=== PATIENT | female | born 1975 | race Caucasian/White ===

== ENCOUNTER 2016-10-01 07:42 | Day surgery (SDC) | payer OTHER ==
--- NOTE | 2016-09-29 14:00 | HISTORY AND PHYSICAL E ---
History and Physical NAME: ZENY LOTT : 1975 AGE: 41Y ADMITTED: 10/01/2016 ROOM: REFERRING: [facility] [place]. HISTORY OF PRESENT ILLNESS: A 41-year-old female with IBS, diarrhea, abdominal pain. PAST SURGICAL HISTORY: 1. She had bilateral breast augmentation 2004. 2. Bilateral eye surgery, LASIK. 3. x3. 4. Umbilical hernia surgery. SOCIAL HISTORY: . Does not smoke. Drinks rarely. FAMILY HISTORY: Father had colon cancer. Mom is alive; she has a breast lesion. REVIEWING OF SYSTEMS: HEAD, EYES, EARS, NOSE, THROAT: Eye surgery. RESPIRATORY: Negative. ENDOCRINE: Negative. GASTROINTESTINAL: Abdominal pain, diarrhea. ONCOLOGY/HEMATOLOGY: Negative. NEUROPSYCHIATRIC: Anxiety. PHYSICAL EXAMINATION: GENERAL: Pleasant, alert, oriented. VITAL SIGNS: Blood pressure is 120/80, pulse 80, respiration is 16, temperature is 98. HEAD, EYES, EARS, NOSE, THROAT: Normal. NECK: Supple. LUNGS: Clear. ABDOMEN: Soft. NEUROLOGIC: Negative. CONCLUSIONS: 1. Diarrhea. 2. Abdominal pain. 3. Family history of colon cancer. PLAN: Colonoscopy, gallbladder ultrasound. Admit 10/01/2016. DICTATING PHYSICIAN: EVELYN MCCORD M.D. [id number] [id number] Y#: [id number] ID: [id number] JOB#: [id number] ACCT: [id number] cc:[facility] EVELYN MCCORD M.D. >
[~2016-10-01 07:42] MED LIST: EPINEPHRINE INJ 1 MG/10 ML DISP.SYRIN ONE; FLUMAZENIL INJ 0.5 MG/5 ML VIAL IV ONE; GLUCAGON,HUMAN RECOMB 1 MG INJ ONE; GLYCOPYRROLATE INJ 0.4 MG/2 ML VIAL ONE; LIDOCAINE 2% JELLY 30 ML TUBE ONE; NALOXONE HCL INJ/PF 0.4 MG/1 ML SDV ONE; ONDANSETRON HCL INJ/PF 4 MG/2 ML SDV ONE
[2016-10-01] MEDS: MIDAZOLAM 2 MG/2 ML INJ ONE ×3 (08:21→08:28)
[2016-10-01] MEDS: FENTANYL CITRATE INJ/PF 100 MCG/2 ML AMPUL ONE ×2 (08:23→08:43)
--- NOTE | 2016-10-01 09:46 | DISCHARGE SUMMARY E ---
Discharge Summary NAME: ZENY LOTT : 1975 AGE: 41Y ADMITTED: 10/01/2016 DISCHARGED: 10/01/2016 PROCEDURE: Colonoscopy, biopsy. HISTORY: A 41-year-old female presented with *------*, had diarrhea, constipation, family history of colorectal polyps. She did have 2 C-sections, umbilical hernia repair. Today's colonoscopy shows no malignancy. Diminutive tiny polyps in the rectosigmoid and mild external hemorrhoids. DISCHARGE PLAN: Soft, low-residue diet. Baseline CBC. Consider followup colonoscopy 3-5 years *------* with propofol. FINAL DIAGNOSES: 1. External hemorrhoids, mild, diminutive. 2. Rectal polyps, mild, benign. 3. Redundant colon. 4. Adhesions. 5. Irritable bowel syndrome. Followup office visit in the next few days. DICTATING PHYSICIAN: EVELYN MCCORD M.D. [id number] [id number] PHY#: [id number] ID: [id number] JOB#: [id number] ACCT: [id number] cc:[facility], EVELYN MCCORD M.D. >
[2016-10-01 09:49] LABS: ABSOLUTE MONOCYTES (AUTO) 0.5 10^3/uL (0.1-1.4); ABSOLUTE NEUT (AUTO) 4.8 10^3/uL (1.7-8.2); BASOPHILS % (AUTO) 0.3 % (0-2); EOSINOPHILS % (AUTO) 0.7 % (0-6); HEMOGLOBIN 13.6 g/dL (12.0-15.5); HGB HCT DIFFERENCE 1.8; LYMPHOCYTES % (AUTO) 15.9 % (13-45); MEAN CORPUSCULAR HEMOGLOBIN 31.3 pg (27.0-33.4); MEAN CORPUSCULAR HGB CONC 34.9 g/dL (32.0-36.0); MEAN CORPUSCULAR VOLUME 90 fl (80-97); MONOCYTES % (AUTO) 8.1 % (3-13); RED BLOOD COUNT 4.35 10^6/uL (3.72-5.28); RED CELL DISTRIBUTION WIDTH 13.1 % (11.5-14.0); WHITE BLOOD COUNT 6.4 10^3/uL (4.0-10.5)
[2016-10-01 09:57] VITALS: BP 115/65
[2016-10-01 10:17] LABS: POTASSIUM 3.8 mmol/L (3.6-5.0)
[2016-10-01 10:19] LABS: ALANINE AMINOTRANSFERASE 21 U/L (9-52); ALBUMIN 4.3 g/dL (3.5-5.0); ALKALINE PHOSPHATASE 42 U/L (38-126); AMYLASE 47 U/L (30-110); ANION GAP 11 (5-19); ASPARTATE AMINO TRANSFERASE 17 U/L (14-36); BILIRUBIN,DIRECT 0.3 mg/dL (0.0-0.4); BILIRUBIN,TOTAL 0.7 mg/dL (0.2-1.3); BLOOD UREA NITROGEN 17 mg/dL (7-20); CALCIUM 8.8 mg/dL (8.4-10.2); CARBON DIOXIDE 26 mmol/L (22-30); CHLORIDE 105 mmol/L (98-107); GLUCOSE 54 mg/dL (75-110); LIPASE 121.7 U/L (23-300); TOTAL PROTEIN 7.4 g/dL (6.3-8.2)
[2016-10-01 10:20] LABS: C-REACTIVE PROTEIN < 5.0 mg/L (<10.0)
[2016-10-01 10:32] LABS: ERYTHROCYTE SEDIMENTATION RATE 12 mm/hr (0-20)
--- NOTE | 2016-10-02 12:30 | OPERATIVE REPORT E ---
Operative Report NAME: ZENY LOTT : 1975 AGE: 41Y DATE OF SURGERY: 10/01/2016 ROOM: PREOPERATIVE DIAGNOSES: 1. Change in bowel habits, alternating between constipation and diarrhea. 2. Family history of colorectal polyps. 3. Lower abdominal pain. PROCEDURE: Colonoscopy. SURGEON: EVELYN MCCORD M.D. ANESTHESIA: Versed 4 mg and Fentanyl 200 mcg. TISSUE REMOVED OR ALTERED: Biopsy, rectum. PROCEDURE: The patient was difficult to sedate. For future colonoscopy, recommend using the propofol and anesthesia standby. Rectal exam: External hemorrhoids, mild. Rectosigmoid colon shows minute diminutive polyps, very small to biopsy, polyps 1-2 mm in size. Sigmoid colon normal. Difficult to intubate the splenic curve. The patient had 2 C-sections and she does have scarring in her transverse and left colon. Transverse colon normal. Ascending colon normal. Cecum was coated with moderate amount of full liquidy stool. I did not see any sign of Crohn disease. The scope was withdrawn back from cecum, ascending, transverse, descending, sigmoid all the way to the rectum. CONCLUSIONS: Redundant colon. Inadequate prep. Moderate amount of full liquid stool in the cecum and ascending colon. PLAN: Awaiting biopsies. Consider follow-up colonoscopy in 3 to 5 years, to be done in the OR with anesthesia standby pending biopsy results. DICTATING PHYSICIAN: EVELYN MCCORD M.D. [id number] 1017 PHY#: [id number] ID: [id number] JOB#: [id number] ACCT: [id number] cc:[facility] EVELYN JARA M.D. >
== END 2016-10-01 10:05 | disposition home or self-care (01) ==
LOC: END 07:42
PROVIDERS: ATTEND Specialist
PROC: 0DBP8ZX Excision of Rectum, Via Natural or Artificial Opening Endoscopic, Diagnostic (ICD-10-PCS; principal; 2016-10-01 08:00)
DX: K58.1 Irritable bowel syndrome with constipation (principal); K64.4 Residual hemorrhoidal skin tags; Q43.8 Other specified congenital malformations of intestine; K58.2 Mixed irritable bowel syndrome; K66.0 Peritoneal adhesions (postprocedural) (postinfection); D12.7 Benign neoplasm of rectosigmoid junction; Z80.0 Family history of malignant neoplasm of digestive organs
CPT/HCPCS: 45380; 36415; 82150; 83690; 85025; 85652; 86140; 80053; 88305 ×2; J2250; J3010; J1610; J2405; J0171; J2310; J3490

== ENCOUNTER → 2016-10-13 | Outpatient (CLI) | payer OTHER ==
--- NOTE | 2016-10-13 16:56 | RADIOLOGY REPORT (SQ) ---
EXAM DESCRIPTION: NM HIDA SCAN WITH CCK COMPLETED DATE/TIME: 10/13/2016 3:00 pm REASON FOR STUDY: ABDOMINAL PAIN R10.9 UNSPECIFIED ABDOMINAL PAIN COMPARISON: None. RADIONUCLIDE AND DOSE: DOSAGE RADIONUCLIDE: 5.1 millicuries Tc99m Mebrofenin. DOSAGE CCK: 1.5 micrograms. DOSAGE MORPHINE: Not required. The route of agent administration: Intravenous TECHNIQUE: Serial imaging right upper quadrant up to 60 minutes following injection of radionuclide. CCK injected after gallbladder visualized. LIMITATIONS: None. FINDINGS: LIVER: Normal visualization without areas of photopenia. INTRAHEPATIC BILE DUCTS: Normal size and no delay in visualization. COMMON BILE DUCT: Normal without dilatation. GALLBLADDER: Normal visualization. Calculated ejection fraction of 70%. Normal range is greater th an 35%. PHYSICAL RESPONSE: Patients presenting complaint was reproduced. OTHER: Post cholecystokinin, there was reflux of biliary activity into the stomach IMPRESSION: NORMAL STUDY WITHOUT CYSTIC OR COMMON DUCT OBSTRUCTION. NORMAL GALLBLADDER EJECTION FRACTION. IV cholecystokinin reproduced the patient's symptoms. Post CCK, there was reflux of biliary activity into the patient's stomach. TECHNICAL DOCUMENTATION: JOB ID: [id number] [employer]- All Rights Reserved
== END ==
LOC: RAD 12:55
PROVIDERS: ATTEND Specialist
DX: R10.9 Unspecified abdominal pain (principal)
CPT/HCPCS: 78227; A9537; Q9969; J2805

== ENCOUNTER 2016-10-14 10:58 | Day surgery (SDC) | payer OTHER ==
--- NOTE | 2016-10-10 10:24 | HISTORY AND PHYSICAL E ---
History and Physical NAME: ZENY LOTT : 1975 AGE: 41Y ADMITTED: 10/14/2016 ROOM: DATE OF ADMISSION: 09/23/2016 CHIEF COMPLAINT: The patient presented complaining of abdominal pain, diarrhea. SOCIAL HISTORY: . Does not smoke. Does not drink. PAST SURGICAL HISTORY: The patient did have bilateral breast augmentation, C section x2, umbilical hernia. REVIEW OF SYSTEMS CARDIAC: Negative. RESPIRATORY: Negative. ENDOCRINE: Negative. GI: Abdominal pain, diarrhea. ONCOLOGY/HEMATOLOGY: Negative. NEUROLOGY: Negative. NEURO/PSYCH: Anxiety. FAMILY HISTORY: Father had heart disease. Mom had breast disease. PHYSICAL EXAMINATION: VITAL SIGNS: Blood pressure is 120/80, pulse 80. Respirations 18. Temperature is 98. HEAD, EYES, EARS, NOSE AND THROAT: Normal. ABDOMEN: Soft. NEUROLOGIC EXAM: Negative. The patient did have recent colonoscopy which shows biopsy negative, benign rectal polyp. She was done upstairs in adequate prep. Her colon shows the following. She did have changed bowel habits. There was abdominal pain. Redundant colon. Biopsy came back negative. The patient did have external hemorrhoids, rectal polyp, redundant colon, adhesions, IBS. PLAN: Upper scope and biliary scan and surgical consult . DICTATING PHYSICIAN: EVELYN MCCORD M.D. [id number] 1647 Y#: [id number] ID: [id number] JOB#: [id number] ACCT: [id number] cc:EVELYN MCCORD M.D. >
[~2016-10-14 10:58] MED LIST changes: +FENTANYL CITRATE INJ/PF 100 MCG/2 ML AMPUL ONE; -FLUMAZENIL INJ 0.5 MG/5 ML VIAL IV ONE; +FLUMAZENIL INJ 0.5 MG/5 ML VIAL ONE; -GLUCAGON,HUMAN RECOMB 1 MG INJ ONE; -LIDOCAINE 2% JELLY 30 ML TUBE ONE; +MIDAZOLAM 2 MG/2 ML INJ ONE
[2016-10-14 12:29] VITALS: BP 134/78
[2016-10-14 12:30] LABS: ABSOLUTE LYMPHOCYTES (AUTO) 1.1 10^3/uL (0.5-4.7); ABSOLUTE MONOCYTES (AUTO) 0.4 10^3/uL (0.1-1.4); ABSOLUTE NEUT (AUTO) 3.9 10^3/uL (1.7-8.2); BASOPHILS % (AUTO) 0.4 % (0-2); EOSINOPHILS % (AUTO) 0.6 % (0-6); HEMOGLOBIN 13.1 g/dL (12.0-15.5); HGB HCT DIFFERENCE 1.3; LYMPHOCYTES % (AUTO) 20.5 % (13-45); MEAN CORPUSCULAR HEMOGLOBIN 31.4 pg (27.0-33.4); MEAN CORPUSCULAR HGB CONC 34.6 g/dL (32.0-36.0); MEAN CORPUSCULAR VOLUME 91 fl (80-97); MONOCYTES % (AUTO) 7.5 % (3-13); RED BLOOD COUNT 4.18 10^6/uL (3.72-5.28); RED CELL DISTRIBUTION WIDTH 13.2 % (11.5-14.0); WHITE BLOOD COUNT 5.5 10^3/uL (4.0-10.5)
[2016-10-14 12:58] LABS: AMYLASE 41 U/L (30-110); ANION GAP 10 (5-19); BLOOD UREA NITROGEN 22 mg/dL (7-20); CALCIUM 9.1 mg/dL (8.4-10.2); CARBON DIOXIDE 29 mmol/L (22-30); CHLORIDE 103 mmol/L (98-107); CREATININE RESULT 0.71 mg/dL (0.52-1.25); GLUCOSE 92 mg/dL (75-110); LIPASE 96.8 U/L (23-300); POTASSIUM 4.3 mmol/L (3.6-5.0); SODIUM 141.6 mmol/L (137-145)
--- NOTE | 2016-10-14 15:24 | OPERATIVE REPORT E ---
Operative Report NAME: ZENY LOTT : 1975 AGE: 41Y DATE OF SURGERY: 10/14/2016 ROOM: PREOPERATIVE DIAGNOSIS: Abdominal pain. POSTOPERATIVE DIAGNOSES: 1. Esophagitis, mild. 2. Gastritis, mild. 3. Duodenitis, mild. PROCEDURE: 1. Esophagoscopy. 2. Gastroscopy. 3. Duodenoscopy. SURGEON: EVELYN MCCORD M.D. ANESTHESIA: Versed 5 and fentanyl 100. TISSUE REMOVED OR ALTERED: Gastric biopsy, H. pylori. PROCEDURE: Baby scope passed under guided vision. No difficulties. Esophagoscopy junction at 40. Mild esophagitis. Gastroscopy: Mild gastritis. Duodenoscopy: Mild duodenitis. CONCLUSION: Esophagitis, gastritis, duodenitis. Gastric biopsy obtained for H. pylori. PLAN: Awaiting biopsy results. CBC. Awaiting gallbladder ultrasound. Upper endoscopy shows no ulcers. No malignancy. She did have mild esophagitis, mild gastritis, mild duodenitis. DICTATING PHYSICIAN: EVELYN MCCORD M.D. 1211M 1157 Y#: [id number] ID: [id number] JOB#: [id number] ACCT: [id number] cc:[facility] EVELYN DAWSON M.D. >
--- NOTE | 2016-10-14 15:32 | DISCHARGE SUMMARY E ---
Discharge Summary NAME: ZENY LOTT : 1975 AGE: 41Y ADMITTED: 10/14/2016 DISCHARGED: 10/14/2016 PROCEDURE: EGD, biopsy. HISTORY: A 41-year-old female presents with abdominal pain. Recent colonoscopy shows small, benign-looking rectal polyp, mild hemorrhoids. Today's upper endoscopy shows no ulcers. She did have mild esophagitis, mild gastritis, mild duodenitis. DISCHARGE PLAN: Soft diet. Hold aspirin. Hold Motrin. Awaiting biopsy results. Awaiting lab studies. Awaiting biliary studies. Followup office visit in the next few days. Patient is allergic to sulfa, hydrocodone and Imitrex. DICTATING PHYSICIAN: EVELYN MCCORD M.D. [id number] [id number] PHY#: [id number] ID: [id number] JOB#: [id number] ACCT: [id number] cc:EVELYN MCCORD M.D. >
== END 2016-10-14 12:30 | disposition home or self-care (01) ==
LOC: END 10:58
PROVIDERS: ATTEND Specialist
PROC: 0DB68ZX Excision of Stomach, Via Natural or Artificial Opening Endoscopic, Diagnostic (ICD-10-PCS; principal; 2016-10-14 11:00)
DX: K29.50 Unspecified chronic gastritis without bleeding (principal); K29.80 Duodenitis without bleeding; K20.9 Esophagitis, unspecified
CPT/HCPCS: 36415; 43239; 82150; 83690; 85025; 80048; 88342 ×2; 88305 ×2; J2250; J3010; J2405; J0171; J2310; J3490

== ENCOUNTER 2016-11-07 06:38 | Day surgery (SDC) | payer OTHER ==
[~2016-11-07 06:38] MED LIST changes: -EPINEPHRINE INJ 1 MG/10 ML DISP.SYRIN ONE; -FENTANYL CITRATE INJ/PF 100 MCG/2 ML AMPUL ONE; -FLUMAZENIL INJ 0.5 MG/5 ML VIAL ONE; -GLYCOPYRROLATE INJ 0.4 MG/2 ML VIAL ONE; -MIDAZOLAM 2 MG/2 ML INJ ONE; -NALOXONE HCL INJ/PF 0.4 MG/1 ML SDV ONE; -ONDANSETRON HCL INJ/PF 4 MG/2 ML SDV ONE; +OXYMETAZOLINE HCL 0.05% NASAL SPRAY 15 ML BOTTLE NAREB PRN
[2016-11-07] MEDS ORDERED: PHENYLEPHRINE HCL 0.25% NASAL SPRAY 15 ML ONE (06:45)
[2016-11-07] MEDS ORDERED: LIDOCAINE 1%/EPINEPHRINE INJ 20 ML VIAL ONE (06:45)
[2016-11-07] MEDS ORDERED: MIDAZOLAM 2 MG/2 ML INJ ONE (07:09)
[2016-11-07] MEDS ORDERED: FENTANYL CITRATE INJ/PF 250 MCG/5 ML AMPULE ONE (07:10)
[2016-11-07] MEDS ORDERED: PROPOFOL INJ 200 MG/20 ML VIAL IV ONE (07:10)
[2016-11-07] MEDS ORDERED: ACETAMINOPHEN 100 ML IV ONE (07:10)
[2016-11-07] MEDS ORDERED: EPINEPHRINE INJ/PF 1 MG/1 ML AMPULE ONE (08:35)
[2016-11-07] MEDS ORDERED: MEPERIDINE HCL/PF INJ 25 MG/1 ML DISP.SYRIN IV PRN (08:50)
[2016-11-07] MEDS ORDERED: OXYCODONE-ACETAMINOPHEN 5-325 MG TABLET PO PRN ×2 (08:50)
[2016-11-07] MEDS ORDERED: FENTANYL CITRATE INJ/PF 100 MCG/2 ML AMPUL IV PRN ×3 (08:50)
[2016-11-07] MEDS ORDERED: MORPHINE SULFATE 10 MG/ML INJ IV PRN (08:50)
[2016-11-07] MEDS ORDERED: PROMETHAZINE HCL INJ 25 MG/1 ML VIAL IV PRN ×2 (08:50)
[2016-11-07] MEDS ORDERED: DIPHENHYDRAMINE HCL 50 MG/ML VIAL IV PRN (08:50)
--- NOTE | 2016-11-07 10:38 | [facility] OPERATIVE REPORT E ---
[facility] Operative Report NAME: ZENY LOTT AGE: 41Y DATE OF SURGERY: 11/07/2016 ROOM: PREOPERATIVE DIAGNOSIS: Nasal obstruction, deviated septum. POSTOPERATIVE DIAGNOSIS: Nasal obstruction, deviated septum. OPERATION: Septoplasty, inferior turbinate reduction. SURGEON: ANTHONY TRAMMELL M.D. ANESTHESIA: MD INDICATIONS: A 41-year-old female with a long history of nasal obstruction, difficulty to breathe through the right nose. Recurrent sinus infections reported. Preoperatively, deviated nasal septum with a superior deformity. She is taken to the operating room for correction of the deformity, risks and benefits of this procedure discussed and accepted preoperatively. OPERATIVE PROCEDURE: Under general anesthesia via orotracheal tube, patient placed in reverse trendelenberg position, prepped and draped for a nasal surgery. Timeout procedure was performed. Nose infiltrated with 1% Xylocaine with 1:100,000 epinephrine solution for a total of 10 mL. A left hemitransfixion was created and a left mucoperichondrial flap was elevated. The junction of the perpendicular plate at the ethmoid and quadrangular cartilage was identified and divided. A right posterior tunnel was created. There was a large superior deformity present. This was removed with the open Richmond-Brewer forceps. No specimens. No pathology. Further treatment was required along the vomer and the axillary crest. Following these maneuvers, the septum lay in good midline position with correction of the deformity. The mucoperichondrial flaps were then reapproximated and held in position with 2-0 Chromic catgut using mattress suture technique. The hemitransfixion incision was closed with interrupted 4-0 Vicryl. Next, the inferior turbinates were outfractured. Jeff elevator was used in standard technique for outfracture. This established a good airway bilaterally with 6/7 mm obtained bilateral and symmetric. Nasopharynx clear. Esqueda airway splint was placed in each side of the septum and held in position with 2-0 Prolene sutures through the columellar area. Patient tolerated this entire procedure well. Total blood loss for procedure approximately 20 mL. She was taken to recovery room area in satisfactory condition. DICTATING PHYSICIAN: ANTHONY TRAMMELL M.D. [id number] [id number] PHY#: [id number] ID: [id number] JOB#: [id number] ACCT: [id number] cc:ANTHONY TRAMMELL M.D. > NAZ
[2016-11-07 11:34] VITALS: BP 140/80
[2016-11-07] MEDS ORDERED: SUCCINYLCHOLINE CHLORIDE INJ 200 MG/10 ML VIAL ONE (15:49)
== END 2016-11-07 11:10 | disposition home or self-care (01) ==
LOC: OROUT 06:38
PROVIDERS: ATTEND Otolaryngology
PROC: 09TL8ZZ Resection of Nasal Turbinate, Via Natural or Artificial Opening Endoscopic (ICD-10-PCS; 2016-11-07)
PROC: 09BM4ZZ Excision of Nasal Septum, Percutaneous Endoscopic Approach (ICD-10-PCS; principal; 2016-11-07 08:30)
DX: J34.89 Other specified disorders of nose and nasal sinuses (principal); J34.2 Deviated nasal septum; I49.9 Cardiac arrhythmia, unspecified; Z79.891 Long term (current) use of opiate analgesic; Z88.2 Allergy status to sulfonamides; Z88.8 Allergy status to other drugs, medicaments and biological substances; Z79.899 Other long term (current) drug therapy
CPT/HCPCS: 30520; 30140; 81025; J2250; J3010; J3490 ×2; J0330; J2704; J0131; 160; J0171

== ENCOUNTER → 2016-12-15 | Outpatient (CLI) | payer OTHER ==
[2016-12-17 08:19] LABS: IMMUNOGLOBULIN G 1172 mg/dL (700-1600)
[2016-12-18 17:37] LABS: F026-IGE PORK <0.10 kU/L (Class 0); F027-IGE BEEF <0.10 kU/L (Class 0)
[2016-12-19 07:20] LABS: F052-IGE CHOCOLATE/COCOA <0.10 kU/L (Class 0)
== END ==
LOC: OD 16:16
PROVIDERS: ATTEND Otolaryngology
DX: J30.89 Other allergic rhinitis (principal)
CPT/HCPCS: 36415; 82784